=== PATIENT | male | born 1965 | race Caucasian/White ===

== ENCOUNTER 2019-07-18 17:45 | Emergency (ER) | payer BC, OTHER ==
[~2019-07-18] VITALS: Ht 177 cm; Wt 87.0 kg
[2019-07-18] MEDS ORDERED: NS IV 1000 ML 1,000 ML IV STA (18:05)
[2019-07-18] MEDS ORDERED: KETOROLAC 30 MG/ML VIAL IVP STA (18:05)
[2019-07-18 18:15] LABS: CLARITY,URINE CLEAR; COLOR,URINE YELLOW
[2019-07-18 18:16] LABS: BACTERIA,URINE 0 /HPF; BILIRUBIN,URINE NEGATIVE (NEGATIVE); GLUCOSE, URINE (UA) NEGATIVE (NEGATIVE); KETONES,URINE NEGATIVE (NEGATIVE); LEUKOCYTE ESTERASE ,URINE NEGATIVE (NEGATIVE); NITRITE,URINE NEGATIVE (NEGATIVE); PROTEIN,URINE NEGATIVE (NEGATIVE); SQUAMOUS EPITHELIAL CELL,UR 0 /HPF; WBC,URINE RARE /HPF
--- NOTE | 2019-07-18 18:16 | ED Abdominal Pain ---
General Chief Complaint: - Urinary Stated Complaint: LOW BACK PAIN Nursing Triage Note: R flank pain and R testicular pain started at approximately 1 pm today. Is currently rated at 7/10 and has taken tramadol for pain 45 minutes prior to arrival. Has hx of kidney stones and states this feels like his previous kidney stones. Sepsis Screen: No Definite Risk Source of Information: Patient History of Present Illness Date Seen by Provider: Jul 18, 2019 Time Seen by Provider: 17:51 Initial Comments 53-year-old male presenting with complaints of right flank pain radiating to his right testicle. He states that this feels similar to when he has had kidney stones in the past. He has no nausea or vomiting with this. The pain started approximately at 1 PM today. He did take two old tramadol pain pills that he had home left over from prior episodes of pain. He took those approximately 45 minutes prior to arriving in the emergency department. He states that his pain is around 7 out of 10 on arriving in the emergency department. He denies seeing any blood in his urine. He does have a recent GI illness with diarrhea after eating some bad food. He states that that is calming down but he still has some gas and irritation from the diarrhea, and the diarrhea has not completely cleared. He states that he does not want to be given narcotics because they make him very angry and a violent person. Allergies and Home Medications Allergies Coded Allergies: Penicillins (Verified Allergy, Unknown, rash, 07/18/19) codeine (Verified Allergy, Unknown, mood swings, 07/18/19) oseltamivir (Verified Allergy, Unknown, tremors/shaking, 07/18/19) Home Medications Tramadol HCl 50 Mg Tablet, 50-100 MG PO Q6H PRN for PAIN-SEVERE (8-10) Prescribed by: TD PHELPS on 07/18/19 3744 Patient Home Medication List Home Medication List Reviewed: Yes Review of Systems Review of Systems Constitutional: No chills, No fever EENTM: No Symptoms Reported Respiratory: No Symptoms Reported Cardiovascular: No Symptoms Reported Gastrointestinal: See HPI, Abdominal Pain (right flank pain radiating to his testicle), Diarrhea (for the last several days); Denies Nausea, Denies Vomiting Genitourinary: Flank Pain (right flank pain) Musculoskeletal: no symptoms reported Skin: no symptoms reported Psychiatric/Neurological: No Symptoms Reported Past Faqanbe-Yxnzgd-Shphst Hx Past Med/Social Hx: Reviewed Nursing Past Med/Soc Hx Patient Social History Alcohol Use: Denies Use Recreational Drug Use: No Smoking Status: Never a Smoker 2nd Hand Smoke Exposure: No Recent Foreign Travel: No Contact w/Someone Who Travel: No Recent Infectious Disease Expo: No Recent Hopitalizations: No Physical Abuse: No Sexual Abuse: No Mistreated: No Fear: No Seasonal Allergies Seasonal Allergies: No Past Medical History Surgeries: Yes (oral surgery ) Respiratory: No Cardiac: Yes High Cholesterol Neurological: No Genitourinary: Yes Kidney Stones Gastrointestinal: No Musculoskeletal: No Endocrine: No HEENT: No Cancer: No Psychosocial: No Integumentary: No Blood Disorders: No Adverse Reaction/Blood Tranf: No Physical Exam Vital Signs Vital Signs - First Documented 07/18/19 18:00 Temp 36.2 Pulse 89 Resp 16 B/P (MAP) 123/79 (94) Pulse Ox 98 Capillary Refill : Less Than 3 Seconds Height/Weight/BMI Height: '" Weight: lbs. oz. kg; 27.00 BMI Method: General Appearance: WD/WN, no apparent distress HEENT: PERRL/EOMI, pharynx normal Neck: non-tender, supple Respiratory: chest non-tender, lungs clear, normal breath sounds Cardiovascular: normal peripheral pulses, regular rate, rhythm Gastrointestinal: normal bowel sounds, non tender, soft, no pulsatile mass Extremities: normal range of motion, non-tender, normal capillary refill Neurologic/Psychiatric: alert, oriented x 3 Skin: normal color, warm/dry Progress/Results/Core Measures Results/Orders Lab Results Laboratory Tests Test 07/18/19 17:54 07/18/19 17:56 Range/Units Urine Color YELLOW Urine Clarity CLEAR Urine pH 7.0 5-9 Urine Specific Archer 1.010 L 1.016-1.022 Urine Protein NEGATIVE NEGATIVE Urine Glucose (UA) NEGATIVE NEGATIVE Urine Ketones NEGATIVE NEGATIVE Urine Nitrite NEGATIVE NEGATIVE Urine Bilirubin NEGATIVE NEGATIVE Urine Urobilinogen 0.2 < = 1.0 MG/DL Urine Leukocyte Esterase NEGATIVE NEGATIVE Urine RBC (Auto) 2+ H NEGATIVE Urine RBC 10-25 H /HPF Urine WBC RARE /HPF Urine Squamous Epithelial Cells 0 /HPF Urine Crystals NONE /LPF Urine Bacteria 0 /HPF Urine Casts NONE /LPF Urine Mucus NONE /LPF Urine Culture Indicated NO White Blood Count 9.2 4.3-11.0 10^3/uL Red Blood Count 5.49 4.35-5.85 10^6/uL Hemoglobin 16.4 13.3-17.7 G/DL Hematocrit 49 40-54 % Mean Corpuscular Volume 89 80-99 FL Mean Corpuscular Hemoglobin 30 25-34 PG Mean Corpuscular Hemoglobin Concent 34 32-36 G/DL Red Cell Distribution Width 12.5 10.0-14.5 % Platelet Count 238 130-400 10^3/uL Mean Platelet Volume 10.0 7.4-10.4 FL Neutrophils (%) (Auto) 64 42-75 % Lymphocytes (%) (Auto) 25 12-44 % Monocytes (%) (Auto) 10 0-12 % Eosinophils (%) (Auto) 1 0-10 % Basophils (%) (Auto) 0 0-10 % Neutrophils # (Auto) 5.8 1.8-7.8 X 10^3 Lymphocytes # (Auto) 2.2 1.0-4.0 X 10^3 Monocytes # (Auto) 0.9 0.0-1.0 X 10^3 Eosinophils # (Auto) 0.1 0.0-0.3 10^3/uL Basophils # (Auto) 0.0 0.0-0.1 10^3/uL Sodium Level 137 135-145 MMOL/L Potassium Level 3.9 3.6-5.0 MMOL/L Chloride Level 97 L 98-107 MMOL/L Carbon Dioxide Level 28 21-32 MMOL/L Anion Gap 12 5-14 MMOL/L Blood Urea Nitrogen 13 7-18 MG/DL Creatinine 1.08 0.60-1.30 MG/DL Estimat Glomerular Filtration Rate > 60 BUN/Creatinine Ratio 110 Glucose Level 110 H 70-105 MG/DL Calcium Level 8.9 8.5-10.1 MG/DL Corrected Calcium 8.5 8.5-10.1 MG/DL Total Bilirubin 0.4 0.1-1.0 MG/DL Aspartate Amino Transf (AST/SGOT) 30 5-34 U/L Alanine Aminotransferase (ALT/SGPT) 39 0-55 U/L Alkaline Phosphatase 90 40-136 U/L Total Protein 8.0 6.4-8.2 GM/DL Albumin 4.5 3.2-4.5 GM/DL Lipase 70 8-78 U/L My Orders Orders - TD PHELPS MD Comprehensive Metabolic Panel (07/18/19 18:05) Lipase (07/18/19 18:05) Ed Iv/Invasive Line Start (07/18/19 18:05) Cbc With Automated Diff (07/18/19 18:05) Ct Abd/Pelvis Wo(Kidney Stone) (07/18/19 18:05) Ns Iv 1000 Ml (Sodium Chloride 0.9%) (07/18/19 18:05) Ketorolac Injection (Toradol Injection) (07/18/19 18:05) Vital Signs/I&O 07/18/19 07/18/19 18:00 18:58 Temp 36.2 36.6 Pulse 89 88 Resp 16 16 B/P (MAP) 123/79 (94) 144/97 Pulse Ox 98 96 07/19/19 00:00 Intake Total 1000 ml Balance 1000 ml Blood Pressure Mean: 94 Progress Progress Note #1: Progress Note IV access was obtained and IV fluids were ordered to hydrate the patient. Urinalysis as well as CBC and chemistry were ordered. Obtain a CT scan to evaluate for kidney stone since he has right flank pain as well as look at his intestines and internal abdominal pathology since he has had recent diarrhea illness. He could have diverticulitis, appendicitis, liver mass, colon mass or cancer, renal mass or testicular mass or cancer to cause his symptoms. The blood work and scan will help to elucidate this better. For his pain a dose of toradol was ordered but as the nursing staff went to administer this he told them that he can not take that because it makes him vomit. When offered a nausea medicine along with the Toradol he told them that he felt better and the Tramadol he took from [facility] seemed to be helping now so he would prefer to wait. Progress Note #2: Progress Note CBC and Chemistry appear stable and UA shows blood but no Nitrates or LE to go with infection. CT scan shows findings of 2 mm distal ureter kidney stone with mild to moderate hydroureter/hydronephrosis. With pain doing better with tramadol and not showing any acute significant abnormality on his labs or tests, will offer to refill his tramadol and have him continue to push fluids and follow up with Urology for continued concerns Diagnostic Imaging Diagonstic Imaging: CT Plain Films/CT/US/NM/MRI: abdomen, pelvis Comments NAME: EDDA URIBE [facility] REC#: [id number] PT STATUS: REG ER : 1965 PHYSICIAN: TD PHELPS MD ADMIT DATE: 07/18/19/ER FS Draft Date of Exam:07/18/19 CT ABD/PELVIS WO(KIDNEY STONE) PROCEDURE: CT urinary tract, rule out kidney stone. TECHNIQUE: Multiple contiguous axial images were obtained through the abdomen and pelvis without the use of intravenous contrast. Auto Exposure Controls were utilized during the CT exam to meet ALARA standards for radiation dose reduction. INDICATION: Right flank pain, kidney stones. COMPARISON: None. FINDINGS: There is mild/moderate right-sided hydronephrosis and hydroureter secondary to nonobstructive 2 mm stone in the distal right ureter. Additional nonobstructive stones are seen, bilaterally. There is no abscess or inflammatory change. There is some mild prostate enlargement. The lung bases are clear. The gallbladder and remainder of the solid organs are grossly unremarkable. Vascular structures and bowel are intact. There are a few diverticuli of the sigmoid colon without diverticulitis. Urinary bladder is grossly unremarkable. Osseous structures are age-appropriate. IMPRESSION: 1. Mild/moderate right-sided hydronephrosis secondary to an obstructive 2 mm stone in the distal right ureter. 2. Mild prostate enlargement. Dictated on workstation # [id number] Dict: 07/18/19 1828 Trans: 07/18/19 1835 [facility] [id number] Interpreted by: CALIN BERGER Electronically signed by: Departure Impression Primary Impression: Calculus of distal right ureter Additional Impressions: Renal colic on right side Acute right flank pain Disposition: 01 HOME, SELF-CARE Condition: Stable Departure-Patient Inst. Decision time for Depature: 18:51 Referrals: NO,LOCAL PHYSICIAN (PCP) Primary Care Physician MICHAEL LLOYD MD Patient Instructions: Flank Pain (DC), Kidney Stone Diet, Kidney Stones (DC), Renal Colic (DC) Add. Discharge Instructions: Continue to push fluids and stay well hydrated. Try to keep your urine and clear and light colored as possible Use the Tramadol to help with your severe pain. You may also take Acetaminophen and Ibuprofen or Naproxen to help with pain. Check back with Dr. Lloyd or Urologist of your choice for continued pain or more problems with kidney stones All discharge instructions reviewed with patient and/or family. Voiced understanding. Scripts Tramadol HCl (Tramadol HCl) 50 Mg Tablet 50-100 MG PO Q6H PRN for PAIN-SEVERE (8-10) for 3 Days, #30 TAB 0 Refills Prov: TD PHELPS MD 07/18/19 TD PHELPS MD Jul 18, 2019 18:16
[2019-07-18 18:20] LABS: HEMATOCRIT 49 % (40-54); HEMOGLOBIN 16.4 G/DL (13.3-17.7); MEAN CORPUSCULAR HEMOGLOBIN 30 PG (25-34); MEAN CORPUSCULAR HGB CONC 34 G/DL (32-36); MEAN CORPUSCULAR VOLUME 89 FL (80-99); RED CELL DISTRIBUTION WIDTH 12.5 % (10.0-14.5); WHITE BLOOD COUNT 9.2 10^3/uL (4.3-11.0)
[2019-07-18 18:21] LABS: BASOPHILS % (AUTO) 0 % (0-10); EOSINOPHILS % (AUTO) 1 % (0-10); LYMPHOCYTES # (AUTO) 2.2 X 10^3 (1.0-4.0); LYMPHOCYTES % (AUTO) 25 % (12-44); MONOCYTES # (AUTO) 0.9 X 10^3 (0.0-1.0); MONOCYTES % (AUTO) 10 % (0-12); NEUTROPHILS # (AUTO) 5.8 X 10^3 (1.8-7.8); NEUTROPHILS % (AUTO) 64 % (42-75); PLATELET COUNT 238 10^3/uL (130-400)
[2019-07-18 18:22] LABS: EOSINOPHILS # (AUTO) 0.1 10^3/uL (0.0-0.3)
[2019-07-18 18:33] LABS: CARBON DIOXIDE 28 MMOL/L (21-32); CHLORIDE 97 MMOL/L (98-107); POTASSIUM 3.9 MMOL/L (3.6-5.0); SODIUM 137 MMOL/L (135-145)
[2019-07-18 18:34] LABS: ALANINE AMINOTRANSFERASE 39 U/L (0-55); ALKALINE PHOSPHATASE 90 U/L (40-136); BILIRUBIN,TOTAL 0.4 MG/DL (0.1-1.0); BUN/CREATININE RATIO 110; CALCIUM 8.9 MG/DL (8.5-10.1); CREATININE SERUM 1.08 MG/DL (0.60-1.30); GFR ESTIMATED > 60; GLUCOSE 110 MG/DL (70-105)
[2019-07-18 18:35] LABS: ALBUMIN 4.5 GM/DL (3.2-4.5); LIPASE 70 U/L (8-78)
--- NOTE | 2019-07-18 18:35 | Diagnostic Imaging Report ---
PROCEDURE: CT urinary tract, rule out kidney stone. TECHNIQUE: Multiple contiguous axial images were obtained through the abdomen and pelvis without the use of intravenous contrast. Auto Exposure Controls were utilized during the CT exam to meet ALARA standards for radiation dose reduction. INDICATION: Right flank pain, kidney stones. COMPARISON: None. FINDINGS: There is mild/moderate right-sided hydronephrosis and hydroureter secondary to nonobstructive 2 mm stone in the distal right ureter. Additional nonobstructive stones are seen, bilaterally. There is no abscess or inflammatory change. There is some mild prostate enlargement. The lung bases are clear. The gallbladder and remainder of the solid organs are grossly unremarkable. Vascular structures and bowel are intact. There are a few diverticuli of the sigmoid colon without diverticulitis. Urinary bladder is grossly unremarkable. Osseous structures are age-appropriate. IMPRESSION: 1. Mild/moderate right-sided hydronephrosis secondary to an obstructive 2 mm stone in the distal right ureter. 2. Mild prostate enlargement. Dictated by: Dictated on workstation # [id number]
[2019-07-18] MEDS ORDERED: TRAM50TA2 PO (18:51)
[2019-07-18 18:58] VITALS: BP 144/97
== END 2019-07-18 18:58 | disposition home or self-care (01) ==
LOC: ER FS 17:49
DX: N13.2 Hydronephrosis with renal and ureteral calculous obstruction (principal); E78.00 Pure hypercholesterolemia, unspecified; Z88.0 Allergy status to penicillin; Z88.5 Allergy status to narcotic agent; Z88.8 Allergy status to other drugs, medicaments and biological substances
CPT/HCPCS: 36415; 74176; 80053; 81000; 83690; 85025